=== PATIENT | female | born 1990 | race Caucasian/White ===

== ENCOUNTER 2016-12-27 20:48 | Emergency (ER) | payer OTHER ==
[~2016-12-27] VITALS: Ht 167.6 cm; Wt 95.0 kg
[2016-12-27 21:59] VITALS: BP 130/64
== END 2016-12-27 22:19 | disposition home or self-care (01) ==
LOC: EMS 20:49
DX: H60.91 Unspecified otitis externa, right ear (principal)
CPT/HCPCS: 99283